=== PATIENT | female | born 1980 | race American Indian/Alaskan Native ===

== ENCOUNTER 2021-01-20 21:42 | Emergency (ER) | payer SELFPAY ==
[2021-01-21 03:12] LABS: Basophils % (Auto) 0.5 % (0.0-1.8); Eosinophils # (Auto) 0.1 K/mm3 (0.0-0.4); Hematocrit 34.6 % (30.3-42.9); Hemoglobin 10.9 gm/dl (10.1-14.3); Lymphocytes # (Auto) 2.6 K/mm3 (1.2-5.4); Lymphocytes % (Auto) 50.7 % (13.4-35.0); Mean Corpuscular HGB Conc 32 % (30-34); Mean Corpuscular Volume 79 fl (79-97); Monocytes # (Auto) 0.4 K/mm3 (0.0-0.8); Monocytes % (Auto) 7.2 % (0.0-7.3); Platelet Count 252 K/mm3 (140-440); Red Blood Count 4.38 M/mm3 (3.65-5.03); Red Cell Distribution Width 16.8 % (13.2-15.2)
[2021-01-21 03:23] LABS: Bilirubin,Urine NEG (Negative); Blood,Urine SM (Negative); Color,Urine Yellow (Yellow); Mucus,Urine FEW /HPF; Protein,Urine <15 mg/dL mg/dL (Negative); Urobilinogen,Urine < 2.0 mg/dL (<2.0)
[2021-01-21 03:31] LABS: Alanine Aminotransferase 12 units/L (7-56); Albumin 3.9 g/dL (3.9-5); BUN/Creatinine Ratio 19; Blood Urea Nitrogen 15 mg/dL (7-17); Hemolysis Index 3
--- NOTE | 2021-01-21 07:56 | Emergency Department Report ---
ED GI Bleed HPI - General Chief complaint: Abdominal Pain Stated complaint: ANAL BLEEDING Time Seen by Provider: 01/21/21 07:30 Source: patient Mode of arrival: Ambulatory Limitations: No Limitations - History of Present Illness Initial comments: 40-year-old -French female presents to the emergency room stating she has some anal bleeding x1 day. Patient states that she went to the bathroom and wiped and saw some blood looked down in the toilet saw more blood. Patient states she really wiped her rectum and saw blood. Patient's last menstrual period was 01/17/2021 and came off of it on 01/20/2021. Patient does admit that she has constipation and he drinks tea to help her move her bowels. Patient denies any shortness of breath no chest pain no dizziness. She does not have a primary care provider. She also complains of right wrist hurting from lifting something at work. 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 Patient is requesting a note for work to states that she cannot lift. Patient reports that it hurts on the lateral side but has full range of motion. complaint: blood on toilet paper Onset/Timin -: days(s) Radiation: none Severity scale (0 -10): 0 Quality: painless Improves with: none Worsens with: none Associated Symptoms: other (Right wrist pain) Treatments Prior to Arrival: none - Related Data Previous Rx's Medication Instructions Recorded Last Taken Type hydrOXYzine PAMOATE [Vistaril] 50 mg PO Q12HR PRN #30 capsule 02/09/20 Unknown Rx Allergies Allergy/AdvReac Type Severity Reaction Status Date / Time No Known Allergies Allergy Unverified 02/08/20 19:58 ED Review of Systems ROS: Stated complaint: ANAL BLEEDING Other details as noted in HPI Comment: All other systems reviewed and negative ED Past Medical Hx - Past Medical History Previous Medical History?: Yes Hx Psychiatric Treatment: Yes (Anxiety and panic attacks) Hx Asthma: Yes - Surgical History Past Surgical History?: No - Social History Smoking Status: Never Smoker - Medications Home Medications: Home Medications Medication Instructions Recorded Confirmed Last Taken Type hydrOXYzine PAMOATE [Vistaril] 50 mg PO Q12HR PRN #30 capsule 02/09/20 Unknown Rx ED Physical Exam - General Limitations: No Limitations General appearance: alert, in no apparent distress - Head Head exam: Present: atraumatic, normocephalic - Eye Eye exam: Present: normal appearance - ENT ENT exam: Present: mucous membranes moist - Neck Neck exam: Present: normal inspection, full ROM - Respiratory Respiratory exam: Absent: respiratory distress, accessory muscle use - Cardiovascular Cardiovascular Exam: Present: regular rate - GI/Abdominal GI/Abdominal exam: Present: soft. Absent: distended, tenderness - Rectal Rectal exam: Present: normal rectal tone, heme (-) stool, other (Multiple hemorrhoid tags) - Extremities Exam Extremities exam: Present: normal inspection - Expanded Upper Extremity Exam Right Hand Wrist exam: Present: full ROM, tenderness. Absent: laceration, deformity, dislocation, erythema, amputation Neuro motor exam: Present: wrist extension intact, thumb opposition intact, thumb IP flexion intact, thumb adduction intact, fingers 2-5 abduction intact Vascular: Present: vascular compromise - Back Exam Back exam: Present: normal inspection - Neurological Exam Neurological exam: Present: alert, oriented X3, normal gait - Psychiatric Psychiatric exam: Present: normal affect, normal mood - Skin Skin exam: Present: warm, dry, intact, normal color. Absent: rash ED Course Vital Signs 01/21/21 01:37 Temperature 98.4 F Pulse Rate 69 Respiratory 16 Rate Blood Pressure 149/75 O2 Sat by Pulse 100 Oximetry ED Medical Decision Making - Lab Data Result diagrams: 01/21/21 02:07 01/21/21 02:07 - Medical Decision Making 40-year-old -French female presents to the emergency room stating she has some anal bleeding x1 day. Patient states that she went to the bathroom and wiped and saw some blood looked down in the toilet saw more blood. Patient states she really wiped her rectum and saw blood. Patient's last menstrual period was 01/17/2021 and came off of it on 01/20/2021. Patient does admit that she has constipation and he drinks tea to help her move her bowels. Patient denies any shortness of breath no chest pain no dizziness. She does not have a primary care provider. She also complains of right wrist hurting from lifting something at work. 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 Patient is requesting a note for work to states that she cannot lift. Patient reports that it hurts on the lateral side but has full range of motion. All labs are within normal limits. Discussed with patient blood she most likely soft coming from her menstrual cycle as she is just got off yesterday. Her stool guaiac is negative. Patient is to follow-up with her primary care provider or [facility] [employer] PRO[facility] COORDINATOR. Critical care attestation.: If time is entered above; I have spent that time in minutes in the direct care of this critically ill patient, excluding procedure time. ED Disposition Clinical Impression: Rectal bleed, Right wrist pain Disposition: TO HOME OR SELFCARE Is pt being admited?: No Does the pt Need Aspirin: No Condition: Stable Instructions: Abdominal Pain (ED), Wrist Pain, Adult, [id number] Additional Instructions: Your stool was negative for any blood bleeding is most likely from your vaginal area as she just completed her cycle. I recommend following up with a [employer]ICE [employer]Y PROGRAM COORDINATOR or primary care provider. As far as her right wrist ibuprofen or Aleve on Tylenol for pain management. Wear a wrist brace when lifting objects. Follow-up with an orthopedic provider. This is most likely due to overuse of lifting. Referrals: PRIMARY CARE [Primary Care Provider] - 3-5 Days [facility] [Provider Group] - 3-5 Days [facility] [Provider Group] - 3-5 Days Forms: Work/School Release Form(ED)
[2021-01-21 08:18] VITALS: BP 121/82
== END 2021-01-21 08:56 | disposition home or self-care (01) ==
LOC: ED 21:42
DX: K62.5 Hemorrhage of anus and rectum (principal); M25.531 Pain in right wrist; J45.909 Unspecified asthma, uncomplicated; F41.9 Anxiety disorder, unspecified; Z79.899 Other long term (current) drug therapy
CPT/HCPCS: 36415; 80053; 81001; 82271; 84703; 85025; 99283

== ENCOUNTER 2021-02-11 17:23 | Emergency (ER) | payer SELFPAY ==
[2021-02-11 18:14] VITALS: BP 135/83
[2021-02-11 19:08] LABS: Bilirubin,Urine NEG (Negative); Blood,Urine SM (Negative); Color,Urine Straw (Yellow); Protein,Urine <15 mg/dL mg/dL (Negative); Urobilinogen,Urine < 2.0 mg/dL (<2.0)
[2021-02-11 19:15] LABS: Basophils % (Auto) 0.4 % (0.0-1.8); Eosinophils % (Auto) 0.7 % (0.0-4.3); Hemoglobin 11.6 gm/dl (10.1-14.3); Lymphocytes # (Auto) 2.4 K/mm3 (1.2-5.4); Lymphocytes % (Auto) 44.7 % (13.4-35.0); Mean Corpuscular HGB Conc 32 % (30-34); Mean Corpuscular Volume 77 fl (79-97); Monocytes # (Auto) 0.3 K/mm3 (0.0-0.8); Monocytes % (Auto) 5.7 % (0.0-7.3); Platelet Count 229 K/mm3 (140-440); Red Blood Count 4.69 M/mm3 (3.65-5.03); Red Cell Distribution Width 16.8 % (13.2-15.2)
[2021-02-11 19:16] LABS: Mucus,Urine FEW /HPF; RBC,Urine < 1.0 /HPF (0.0-6.0)
[2021-02-11 19:18] LABS: Alanine Aminotransferase 11 units/L (7-56); Albumin 4.2 g/dL (3.9-5); BUN/Creatinine Ratio 6; Blood Urea Nitrogen 5 mg/dL (7-17); Calcium 8.9 mg/dL (8.4-10.2); Hemolysis Index 3
--- NOTE | 2021-02-12 02:39 | Emergency Department Report ---
ED Abdominal Pain HPI - General Chief Complaint: GI Bleed Stated Complaint: RECTAL BLEEDING Time Seen by Provider: 02/12/21 02:16 Source: patient Mode of arrival: Ambulatory Limitations: No Limitations - History of Present Illness Initial Comments: 40-year-old male female presents emerge department complaining of having some painless bleeding with constipation-like bowel movements started earlier today and she had a previous episode about a month ago for which she was evaluated emergency department and had spontaneous resolution. No abdominal pain no nausea, no vomiting, diarrhea, fever, chills, sweats, chest pain, palpitations. MD Complaint: abdominal pain, other Radiation: none Migration to: no migration Severity: mild Severity scale (0 -10): 4 Improves With: nothing Worsens With: nothing Associated Symptoms: denies other symptoms. denies: nausea, diarrhea, constipation, dysuria, hematemesis, melena, hematuria, syncope - Related Data Previous Rx's Medication Instructions Recorded Last Taken Type hydrOXYzine PAMOATE [Vistaril] 50 mg PO Q12HR PRN #30 capsule 02/09/20 Unknown Rx Hydrocortisone [Anucort-HC SUPPOS] 25 mg RC BID #20 supp.rect 02/12/21 Unknown Rx Allergies Allergy/AdvReac Type Severity Reaction Status Date / Time No Known Allergies Allergy Unverified 02/08/20 19:58 ED Review of Systems ROS: Stated complaint: RECTAL BLEEDING Other details as noted in HPI Comment: All other systems reviewed and negative ED Past Medical Hx - Past Medical History Hx Psychiatric Treatment: Yes (Anxiety and panic attacks) Hx Asthma: Yes - Surgical History Past Surgical History?: No - Social History Smoking Status: Never Smoker - Medications Home Medications: Home Medications Medication Instructions Recorded Confirmed Last Taken Type hydrOXYzine PAMOATE [Vistaril] 50 mg PO Q12HR PRN #30 capsule 02/09/20 Unknown Rx Hydrocortisone [Anucort-HC SUPPOS] 25 mg RC BID #20 supp.rect 02/12/21 Unknown Rx ED Physical Exam - General Limitations: No Limitations General appearance: alert, in no apparent distress - Head Head exam: Present: atraumatic, normocephalic - Eye Eye exam: Present: normal appearance, PERRL, EOMI Pupils: Present: normal accommodation - ENT ENT exam: Present: mucous membranes moist - Neck Neck exam: Present: normal inspection, full ROM - Respiratory Respiratory exam: Present: normal lung sounds bilaterally. Absent: respiratory distress - Cardiovascular Cardiovascular Exam: Present: regular rate, normal rhythm. 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 Absent: black stool, bloody stool, mass, tenderness - Extremities Exam Extremities exam: Present: normal inspection, normal capillary refill - Back Exam Back exam: Present: normal inspection. Absent: CVA tenderness (R), CVA tenderness (L) - Neurological Exam Neurological exam: Present: alert, oriented X3, CN II-XII intact - Psychiatric Psychiatric exam: Present: normal affect, normal mood - Skin Skin exam: Present: warm, dry, intact, normal color. Absent: rash ED Course Vital Signs 02/11/21 18:13 Temperature 98.2 F Pulse Rate 84 Respiratory 20 Rate Blood Pressure 135/83 [Right] O2 Sat by Pulse 100 Oximetry ED Medical Decision Making - Lab Data Result diagrams: 02/11/21 18:32 02/11/21 18:32 - Medical Decision Making 3-year-old male female is emerged department complaining of a reemergence of her hemorrhoids that was painless bleeding associated with constipation. Examination did not show any overt rectal bleeding other than what was noted was of was visualized. Critical care attestation.: If time is entered above; I have spent that time in minutes in the direct care of this critically ill patient, excluding procedure time. ED Disposition Clinical Impression: Hemorrhoids Disposition: DC-01 TO HOME OR SELFCARE Is pt being admited?: No Does the pt Need Aspirin: No Condition: Stable Instructions: Hemorrhoids, [id number], Nonsurgical Procedures for Hemorrhoids, Care After, Hemorrhoids Prescriptions: Hydrocortisone [Anucort-HC SUPPOS] 25 mg RC BID #20 supp.rect Referrals: [facility] [Provider Group] - 3-5 Days PRIMARY CARE,MD [Primary Care Provider] - 3-5 Days Forms: Accompanied Note
== END 2021-02-12 02:40 | disposition home or self-care (01) ==
LOC: ED 17:23
DX: K64.9 Unspecified hemorrhoids (principal); J45.909 Unspecified asthma, uncomplicated
CPT/HCPCS: 36415; 80053; 81001; 85025; 99283